=== PATIENT | female | born 1985 | race Hispanic/Latino ===

== ENCOUNTER 2025-05-05 10:42 | Emergency (ER) | payer BC, MEDICAID ==
[~2025-05-05] VITALS: Ht 175.3 cm; Wt 113.4 kg
[2025-05-05 12:30] VITALS: BP 131/73; PULSE 88; RESP 18; TEMP 98.1; O2SAT 98
[2025-05-05] MEDS ORDERED: NAPR-1196 PO (12:42)
--- NOTE | 2025-05-05 12:43 | ERN ---
ED Note History of Present Illness Stated Complaint: RIGHT KNEE INJURY Chief Complaint: Knee Injury/Swelling Time Seen by MD: 10:45 Dictation: 39-year-old female presenting to the emergency department with a right knee injury patient reports slipping on wet surface and landing on her right knee causing deformity unable to range, no other injuries no head injury no chest pain no shortness a breath, transported by EMS with stable vital signs. Allergies: Coded Allergies: No Known Allergies (Unverified Allergy, Unknown, 05/05/25) Past Medical History Past Medical History: No Pertinent History Surgical History: Other Surgical History Other: D&C LMP: May 03, 2025 : 4 Para: 3 Aborts: 1 Review of System Dictation Constitutional: Negative for fever,chills, and weight loss Eyes: Negative for injury, pain,redness, and discharge ENT: Negative for injury,pain or swelling Cardiovascular: Negative for chest pain, palpitations, and edema Respiratory: Negative for shortness of breath, cough, and wheezing, Abdomen/GI: Negative for abdominal pain, nausea, vomiting, diarrhea, and constipation Back: Negative for injury and pain : Negative for injury, bleeding and discharge MS/Extremity: Per HPI Skin: Negative for rash, and discoloration Neuro: Negative for headache, weakness, numbness, tingling, and seizure Psych: Negative for suicide ideation, homicidal ideation, and hallucinations Initial Vital Sign VS Vital Signs Date Time Temp Pulse Resp B/P (MAP) Pulse Ox O2 Delivery O2 Flow Rate FiO2 05/05/25 10:46 98.1 92 18 139/70 98 0 05/05/25 12:30 Room Air* 21 Physical Exam Dictation General: awake, alert, NAD Head/Face: Normocephalic, atraumatic Eyes: PERRL, EOMI, vision at baseline ENT: oral cavity clear, TMs clear, no signs of infection Neck: Trachea midline, supple, no nuchal rigidity Cardiovascular: RRR, normal S1/S2, No MRGs, no JVD Respiratory: CTAB, no respiratory distress, No rales or wheezes Abdomen: Soft, non-tender, non-distended, normal bowel sounds, no guarding or rebound. Skin: Warm, dry, normal turgor, no rash MS/Extremity: Pulses equal, no cyanosis, neurovascular intact, FROM, right knee cap deformity, dislocation laterally, closed neurovascularly intact distally good pulses to the dorsalis pedis, compartments soft, Neuro: COAx4, GCS 15, strength 5/5, CN 2-12 intact, normal cerebellar exam, normal gait, Psych: Normal behavior, mood, and affect normal Results (Laboratory/Radiology) X-RAY Comment: No fractures noted on x-ray ED Course ED Course Orders Procedure Category Date Status Time Knee 3vws Rt RAD 05/05/25 Taken 11:04 Morphine 4mg Syg PHA 05/05/25 Complete (Morphine 4mg Syg) 11:04 Ondansetron 4mg Inj PHA 05/05/25 In Process (Zofran 4mg Inj) 11:04 Knee 3vws Rt RAD 05/05/25 Taken 12:12 Current Medications Medications (Trade) Dose Ordered Sig/Julio Route PRN Reason Start Time Stop Time Status Last Admin Dose Admin Morphine Sulfate (morPHINE 4MG SYG) 4 mg ONCE IVP 05/05/25 11:04 05/05/25 11:36 DC Ondansetron HCl (zoFRAN 4MG INJ) 4 mg ONCE IVP 05/05/25 11:04 05/05/25 15:00 Vital Signs Date Time Temp Pulse Resp B/P (MAP) Pulse Ox O2 Delivery O2 Flow Rate FiO2 05/05/25 12:30 98.1 88 18 131/73 98 Room Air* 0 21 05/05/25 10:46 98.1 92 18 139/70 98 0 Medical Decision Making MDM MDM: Differential diagnosis: Rationale: Tests considered and ordered secondary to shared decision making include: Previous outside records reviewed: Old ER visits. Risk of complication and/or morbidity or mortality of patient management: None Medications-Per medication reconciliation Need for hospitalization: Patient does not meet criteria for hospitalization. Need for emergency major/minor surgery: No There are no social concerns with this patient. Prescription drug management Prescriptions will include symptomatic care Patient's prior external medical records from other ER visits were reviewed by me as indicated. Prior testing and results from previous visits were reviewed. Prior tests were taken into account with medical decision making and resource utilization, independent historian/historians were used to obtain complete medical history. I independently interpreted the test that were performed, results were reviewed by me and considered findings on radiology if ordered. Medical management and examination interpretation discussions were had by me with other qualified healthcare professionals as indicated for the patient's care. 39-year-old female with right patella dislocation no fractures, patient refused pain medication or IV, patella was reduced at bedside with relief of symptoms post neuro exam was normal 2+ pulses to dorsalis pedis compartments soft patient placed in knee immobilizer and stable for discharge with outpatient orthopedic follow up advised to be nonweightbearing with crutches Procedure Joint Reduction Site: patella (R) Conscious Sedation: No Pre-Procedure NV Exam: Yes Post-Procedure NV Exam: Yes post joint reduction film: no fracture seen Progress Direct pressure over the patella, in full extension, no complications post neurovascular exam was stable. DX & DISP Disposition: Discharge Departure Impression: Primary Impression: Dislocation of patella, right, closed Condition: Stable Scripts Naproxen (Naproxen) 250 Mg Tablet 250 MG PO BID for 5 Days, #10 TAB Prov: JESSICA DUGGAN MD 05/05/25 Referrals: SELF,REFERRAL (PCP) RAYMOND SAMPSON MD Time of Disposition: 12:42 JESSICA DUGGAN MD May 05, 2025 12:43
--- NOTE | 2025-05-05 12:46 | HMCIMG ---
EXAM: CR right Knee, 3 View. CLINICAL HISTORY: injury COMPARISON: None provided. FINDINGS: BONES: No acute fracture or aggressive appearing osseous lesion. JOINTS: The joint spaces show no significant degenerative disease. There is no joint effusion appreciated. SOFT TISSUES: The soft tissues are unremarkable. IMPRESSION: No acute osseous pathology evident. /Mcbain
--- NOTE | 2025-05-05 12:48 | HMCIMG ---
EXAM CR Right Knee, 1 view CLINICAL HISTORY Post reduction COMPARISON 05/05 11:17 EST CR - KNEE 3VWS RT FINDINGS BONES No acute fracture or aggressive appearing osseous lesion is identified. The patella is normally located, and the trochlear groove is normally aligned. JOINTS The joint spaces are preserved without significant degenerative change. No definite joint effusion is appreciated on this single view. SOFT TISSUES Mild soft tissue swelling contusion is noted adjacent to the medial pole of the patella. No radiopaque foreign body is identified. IMPRESSION * No acute fracture or malalignment of the right knee. Patella located with normal alignment to the trochlear groove. * Mild soft tissue contusion along the medial aspect of the patella. /Canones
== END 2025-05-05 12:56 | disposition home or self-care (01) ==
LOC: EDH 10:42
DX: S83.004A Unspecified dislocation of right patella, initial encounter (principal); W01.0XXA Fall on same level from slipping, tripping and stumbling without subsequent striking against object, initial encounter; Y93.89 Activity, other specified; Y92.89 Other specified places as the place of occurrence of the external cause; Y99.8 Other external cause status
CPT/HCPCS: 27560; 73562; 99283